=== PATIENT | female | born 1985 | race Hispanic/Latino ===

== ENCOUNTER 2020-04-20 18:05 | Inpatient (IN) | payer OTHER, MEDICAID ==
[~2020-04-20] VITALS: Ht 152.4 cm; Wt 70.3 kg
[2020-04-20 18:53] LABS: HEMATOCRIT 30.4 % (36-48); MEAN CORPUSCULAR HGB CONC 31.6 g/dL (32.0-36.0); MEAN CORPUSCULAR VOLUME 85.4 fL (79-99); RED BLOOD CELL COUNT(AUTO) 3.56 MIL/uL (4.00-5.50); RED CELL DISTRIBUTION WIDTH 15.9 % (11.0-15.5); WHITE BLOOD COUNT (AUTO) 9.2 K/uL (4.8-10.8)
[2020-04-20 18:54] LABS: APPEARANCE,URINE Cloudy (CLEAR); BILIRUBIN,URINE Small (NEGATIVE); COLOR,URINE Dark Yellow (YELLOW); GLUCOSE, URINE (UA) Negative (NEGATIVE); KETONES,URINE Trace mg/dL (NEGATIVE); LEUKOCYTE ESTERASE ,URINE Trace (NEGATIVE); NITRATE,URINE Negative (NEGATIVE); OCCULT BLOOD,URINE Moderate (NEGATIVE); PROTEIN,URINE Trace mg/dL (NEGATIVE)
[2020-04-20 19:20] LABS: BACTERIA,URINE Few /HPF (None Seen)
[2020-04-20 19:21] LABS: MUCUS,URINE Few LPF (None Seen); SQUAMOUS EPITHELIAL CELL,UR Moderate /HPF (0-2)
[2020-04-20 19:51] VITALS: BP 108/58
[2020-04-20] MEDS: LACTATED RINGERS 1000ML 1,000 ML IV PRN (23:31)
[2020-04-21] MEDS ORDERED: OXYTOCIN-LR 20 UNITS/1000 ML 1,000 ML IV ONE ×2 (03:47→10:45)
[2020-04-21] MEDS ORDERED: OXYTOCIN 10 USP UNITS/ML 20 UNIT in LACTATED RINGERS 1000ML 1,000 ML IV SCH (04:00)
[2020-04-21] MEDS ORDERED: PROMETHAZINE HCL 25 MG/ML 1ML AMPULE IM SCH (07:30)
[2020-04-21] MEDS ORDERED: MEPERIDINE-PF 50 MG/ML SYG IVP SCH (07:30)
[2020-04-21] MEDS: LACTATED RINGERS 1000ML 1,000 ML IV PRN (07:52)
[2020-04-21] MEDS ORDERED: EPHEDRINE SULFATE 50 MG/ML AMPULE IVP PRN (09:30)
[2020-04-21] MEDS ORDERED: LACTATED RINGERS 500 ML 500 ML IV PRN (09:30)
[2020-04-21] MEDS ORDERED: ROPIVACAINE 0.2% 100ML VIAL 100 ML EP SCH (09:30)
[2020-04-21] MEDS ORDERED: NALOXONE HCL 0.4 MG/1 ML ML IV PRN (09:30)
[2020-04-21] MEDS ORDERED: METHYLERGONOVINE MALEATE 0.2 MG/1 ML ML ONE (12:08)
[2020-04-21] MEDS ORDERED: MISOPROSTOL 200 MCG TABLET ONE (12:08)
[2020-04-21] MEDS ORDERED: DIPH,PERTUSS(ACELL),TET VAC/PF 0.5 ML VIAL IM PRN (12:15)
[2020-04-21] MEDS ORDERED: WITCH HAZEL 1 PAD TP PRN (12:15)
[2020-04-21] MEDS ORDERED: OXYTOCIN-LR 20 UNITS/1000 ML 1,000 ML IV SCH ×2 (12:15→12:45)
[2020-04-21] MEDS ORDERED: BENZOCAINE/LANOLIN/ALOE VERA 60 ML AEROSOL TP PRN (12:15)
[2020-04-21] MEDS ORDERED: MEASLES/MUMPS/RUBELLA VACCINE, LIVE 0.5 ML/VIAL SQ PRN (12:15)
[2020-04-21] MEDS ORDERED: ACETAMINOPHEN-CODEINE 300/30MG TAB PO PRN (12:15)
[2020-04-21] MEDS ORDERED: ACETAMINOPHEN 325 MG TAB PO PRN (12:15)
[2020-04-21] MEDS ORDERED: LANOLIN 30GM OINTMENT TP PRN (12:15)
[2020-04-21 14:50] VITALS: BP 115/65
[2020-04-21] MEDS: IBUPROFEN 600 MG TABLET PO PRN (14:56)
[2020-04-21] MEDS ORDERED: PNV1TABL17 PO (15:40)
[2020-04-21] MEDS ORDERED: FERR325T22 PO (15:40)
[2020-04-21 19:35] VITALS: BP 98/64
[2020-04-21] MEDS: DOCUSATE SODIUM 100 MG CAP PO SCH (21:06)
[2020-04-21 23:38] VITALS: BP 104/49
[2020-04-22 03:14] VITALS: BP 104/56
[2020-04-22 05:22] LABS: HEMATOCRIT 25.8 % (36-48); MEAN CORPUSCULAR HEMOGLOBIN 27.2 pg (27.0-33.0); MEAN CORPUSCULAR HGB CONC 31.4 g/dL (32.0-36.0); MEAN CORPUSCULAR VOLUME 86.6 fL (79-99); RED BLOOD CELL COUNT(AUTO) 2.98 MIL/uL (4.00-5.50); RED CELL DISTRIBUTION WIDTH 15.9 % (11.0-15.5); WHITE BLOOD COUNT (AUTO) 13.5 K/uL (4.8-10.8)
[2020-04-22 07:52] VITALS: BP 108/62
[2020-04-22] MEDS: DOCUSATE SODIUM 100 MG CAP PO SCH (09:35)
[2020-04-22] MEDS: IBUPROFEN 600 MG TABLET PO PRN (09:36)
--- NOTE | 2020-04-22 10:30 | NUR ---
verbal and written discharge instructions given, informed of the follow up appointment. prescription given. informed to call the doctor for future concerns. pt voiced understanding to all things discussed. Addendum: 04/22/20 at 1143 by ORLY MONTERO RN Amended: Links added. Addendum: 04/22/20 at 1449 by ORLY MONTERO RN no prescription given
[2020-04-22 11:08] VITALS: BP 100/58
[2020-04-22 12:11] LABS: HEPATITIS Bs ANTIGEN SCREEN P Negative (Negative)
--- NOTE | 2020-04-22 14:10 | NUR ---
pt is dismissed in stable condition, brought to private car via wheelchair by lee Mayo pcp Addendum: 04/22/20 at 1447 by ORLY MONTERO RN Amended: Links added.
== END 2020-04-22 14:10 | disposition home or self-care (01) | DRG 807 ==
LOC: LDH 18:05 → WSH 04-21 14:45
PROVIDERS: ADMIT Obstetrics & Gynecology; ATTEND Obstetrics & Gynecology
PROC: 10E0XZZ Delivery of Products of Conception, External Approach (ICD-10-PCS; principal; 2020-04-21)
PROC: 0KQM0ZZ Repair Perineum Muscle, Open Approach (ICD-10-PCS; 2020-04-21)
PROC: 3E0R3BZ Introduction of Anesthetic Agent into Spinal Canal, Percutaneous Approach (ICD-10-PCS; 2020-04-21)
PROC: 00HU33Z Insertion of Infusion Device into Spinal Canal, Percutaneous Approach (ICD-10-PCS; 2020-04-21)
PROC: 10907ZC Drainage of Amniotic Fluid, Therapeutic from Products of Conception, Via Natural or Artificial Opening (ICD-10-PCS; 2020-04-21)
PROC: 3E0234Z Introduction of Serum, Toxoid and Vaccine into Muscle, Percutaneous Approach (ICD-10-PCS; 2020-04-21)
DX: O62.2 Other uterine inertia (principal); Z37.0 Single live birth; O70.1 Second degree perineal laceration during delivery; Z3A.00 Weeks of gestation of pregnancy not specified; Z23 Encounter for immunization
CPT/HCPCS: 36415; 81001; 85027; 86592; 86850; 86900; 86901; 87340; 90715; A4314; G0378; J2175; J2210; J2550; J2590; J2795; J7120